=== PATIENT | female | born 1950 | race Caucasian/White ===

== ENCOUNTER 2024-06-13 09:55 | Outpatient (CLI) | payer MEDICARE, BC | END 2024-06-13 09:56 | disposition home or self-care (01) | LOC: CSHMAMMO 09:55 | PROVIDERS: ATTEND Internal Medicine | DX: M81.8 Other osteoporosis without current pathological fracture (principal); M85.851 Other specified disorders of bone density and structure, right thigh; M85.852 Other specified disorders of bone density and structure, left thigh | CPT/HCPCS: 77080 ==

== ENCOUNTER 2025-03-06 09:56 | Outpatient (CLI) | payer MEDICARE, BC | END 2025-03-06 09:57 | disposition home or self-care (01) | LOC: CSHRAD 09:56 | PROVIDERS: ATTEND Internal Medicine Rheumatology | DX: M81.0 Age-related osteoporosis without current pathological fracture (principal); M47.814 Spondylosis without myelopathy or radiculopathy, thoracic region | CPT/HCPCS: 72070 ==